=== PATIENT | female | born 1970 | race Caucasian/White ===

== ENCOUNTER 2022-07-31 09:48 | Emergency (ER) | payer MEDICAID, OTHER ==
[~2022-07-31] VITALS: Ht 154.9 cm; Wt 71.0 kg
[~2022-07-31 09:48] MED LIST: AMIT25TA9 PO; AMLO10TA80 PO; CARV25TA47 PO; CHLO25TA2 PO; LISI40TA13 PO; OMEP40CA20 PO; SERT20OR6 PO
[2022-07-31 09:55] VITALS: BP 166/75
[2022-07-31] MEDS ORDERED: ONDANSETRON 4MG ODT PO ONE (11:30)
[2022-07-31] MEDS ORDERED: ACETAMINOPHEN 325MG TABLET PO ONE (11:30)
[2022-07-31] MEDS ORDERED: ONDA4TAB50 MT (12:20)
[2022-07-31] MEDS ORDERED: ACET-2708 MT (12:20)
== END 2022-07-31 12:49 | disposition home or self-care (01) ==
LOC: ER 09:48
DX: S00.03XA Contusion of scalp, initial encounter (principal); I11.9 Hypertensive heart disease without heart failure; I25.2 Old myocardial infarction; F41.9 Anxiety disorder, unspecified; W17.89XA Other fall from one level to another, initial encounter; Y93.B1 Activity, exercise machines primarily for muscle strengthening; Y92.39 Other specified sports and athletic area as the place of occurrence of the external cause; Y99.9 Unspecified external cause status; Z79.82 Long term (current) use of aspirin
CPT/HCPCS: 70450; 72125; 99284; Q0162